=== PATIENT | female | born 2000 | race Caucasian/White ===

== ENCOUNTER 2021-03-03 06:47 | Day surgery (SDC) | payer OTHER ==
[~2021-03-03] VITALS: Ht 157.5 cm; Wt 58.1 kg
--- NOTE | ~2021-03-03 | O ---
[facility] [place] [address] OPERATIVE REPORT Name: OLMAN SPRING Maile Room #: 150-5 [facility]..#: [id number] Admission: 03/03/21 Attend Phys: Geovanni Reed MD Discharge: Date of : 01 Report #: [id number] THIS REPORT FOR: cc: Donna Khanna MD FAM - Family physician unknown Geovanni Reed MD ~ DATE OF SERVICE: 03/03/2021 PREOPERATIVE DIAGNOSES: Chronic tonsillitis, tonsil and adenoid hypertrophy, chronic adenoiditis. POSTOPERATIVE DIAGNOSES: Chronic tonsillitis, tonsil and adenoid hypertrophy, chronic adenoiditis. ANESTHESIA: General endotracheal. PROCEDURE: Tonsillectomy and adenoidectomy. DESCRIPTION OF PROCEDURE: The patient was taken to the operating room and placed in the supine position. General anesthesia was induced by endotracheal intubation. Once adequate general anesthesia was obtained, the patient was draped in a sterile manner. A Zachary-Jose mouth gag was placed in the patient's mouth and the tongue was deviated upward. The nasopharynx was visualized indirectly using a mirror. There was a pocket of purulence at the base of the adenoid and the adenoid was hypertrophied and adenoidectomy was performed by placing the adenoid curette at the base of the vomer and sweeping downward. The adenoid was removed and sent to pathology. Nasopharyngeal packing was placed. The right tonsil was grasped and deviated towards the midline and incision was placed in the anterior tonsillar pillar using the Bovie electrocautery and a plane between the tonsillar capsule and tonsillar fossa was established. Dissection was carried out in this plane using the Bovie and hemostasis was achieved during the dissection. Dissection was carried out from superior to inferior. The inferior pole was incised and posterior tonsillar mucosa was incised. The tonsil was removed and sent to pathology. The left tonsil was removed in exactly the same manner. The nasopharyngeal packing was removed. The nasopharynx was irrigated and there was adequate hemostasis in the nasopharynx as well. The mouth gag was removed. The patient tolerated the procedure well. Blood loss approximately 20 mL. The patient was then awoken and taken to recovery room in stable condition for postoperative monitoring. By: 0823 0832 Geovanni Reed MD /sarai
[2021-03-03 07:38] VITALS: BP 135/76
--- NOTE | 2021-03-03 08:29 | H ---
[facility] [place] [address] HISTORY AND PHYSICAL Name: OLMAN SPRING Maile Room #: 150-5 [facility]..#: [id number] Admission: 03/03/21 Attend Phys: Geovanni Reed MD Discharge: Date of : 01 Report #: [id number] THIS REPORT FOR: cc: Donna Khanna MD [facility] - Family physician unknown Geovanni Reed MD ~ DATE OF SERVICE: 03/03/2021 HISTORY OF PRESENT ILLNESS: The patient has symptoms of chronic tonsillitis with tonsillar hypertrophy. She has had persistently swollen tonsils over the last 3 months despite treatment with 3 different courses of antibiotics. Her mother says that she had problems with her tonsils and strep throat as a child. Her tonsils would swell and cause throat pain. She has some difficulties swallowing when she has a throat infection. PAST MEDICAL HISTORY: Otherwise not significant. MEDICATIONS: She takes no medications on a regular basis. ALLERGIES: She has no known drug allergies. PHYSICAL EXAMINATION: HEENT: She had 4+ enlarged tonsils that almost meet in the midline. She had deep crypts along with inclusion cyst within the tonsils. The tonsils are red and vascular with redness of the tonsillar pillars. She had mild upper cervical adenopathy. IMPRESSION: Chronic tonsillitis with tonsillar hypertrophy. PLAN: Tonsillectomy. <ELECTRONICALLY SIGNED> By: Geovanni Reed MD 03/03/21 0829 1250 [id number] Geovanni Reed MD /sarai
[2021-03-03] MEDS ORDERED: LORTAB 10 MG-3473 ML PO (09:29)
[2021-03-03] MEDS ORDERED: AMOXICILLI400 MG/5 M PO (09:29)
[2021-03-03 12:47] VITALS: BP 135/76
--- NOTE | 2021-03-05 15:07 | PATH ---
[facility] [address] [place] [address] PATHOLOGY RPT PROCEDURE Name: OLMAN SPRING Room #: [place] [facility] [place].#: [id number] Admission: 03/03/21 Date of : 01 Discharge: 03/03/21 Report #: [id number] Path Case #: [id number] [facility] Accession Number: [id number] . 01 Material submitted: . PART A: tonsil - RIGHT TONSIL AND ADENOIDS. Modifiers: right PART B: tonsil - LEFT TONSIL. Modifiers: left . 01 Clinical history: . TONSILLAR HYPERTROPHY, CHRONIC TONSILLITIS . 02 Diagnosis: A. 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 . B. [place] tonsil (left tonsillectomy): - Marked reactive lymphoid hyperplasia consistent with chronic tonsillitis. . (DANTE:basim; 03/05/2021) MBR 03/05/2021 [facility]1 Local . 02 Electronically signed: . Dk Nicolas MD, Pathologist NPI- [id number] . 01 Gross description: . A. Fixative: Formalin Labeled: Right tonsil and adenoids Specimen received: Intact tonsil Dimensions: 3.0 x 1.8 x 1.3 cm Mucosa: Light lutz-serrano Cut surface: Light lutz-yellow and focally hemorrhagic [employer] section submitted in cassette A1. . Specimen received: Multiple segments of adenoids Dimensions: 2.8 x 1.5 x 0.5 cm in aggregate dimensions Mucosa: Light lutz-yellow Cut surface: Light lutz-yellow [employer] sections submitted in cassette A2. . . B. Fixative: Formalin Labeled: Left tonsil Specimen received: Intact tonsil Dimensions: 3.7 x 2.0 x 1.[address] [address] PATHOLOGY RPT PROCEDURE Name: KAWNCHARI CaalOLMAN D Room #: DEP [facility]#: [id number] Admission: 03/03/21 Date of : 01 Discharge: 03/03/21 Report #: [id number] Path Case #: [id number] Mucosa: Light lutz-serrano Cut surface: Light lutz-yellow [employer] section submitted in cassette B1. ([facility]; 03/04/2021) [facility] 03/04/2021 1109 Local . 02 Pathologist provided ICD-10: J35.03, J35.1 . 02 CPT . 508914, [id number] Specimen Comment: A courtesy copy of this report has been sent to [phone], [phone] Specimen Comment: [phone] Specimen Comment: Report sent to / DR XIONG Performed at: 01 [facility] [address] [place] [address] [id number] MD Vasiliy Gold MD Phone: [phone] Performed at: 02 [facility] [address] [id number] MD Dk Nicolas MD Phone: [phone]
== END 2021-03-03 13:00 | disposition home or self-care (01) ==
LOC: EDSEX → OR 06:47 → TBA 07:12 → OR 08:32
PROVIDERS: ATTEND Otolaryngology
DX: J35.03 Chronic tonsillitis and adenoiditis (principal); Z98.890 Other specified postprocedural states; Z79.899 Other long term (current) drug therapy
CPT/HCPCS: 50010; 50101; 62110; 62900; 70005